=== PATIENT | male | born 1940 | race Caucasian/White ===

== ENCOUNTER 2017-01-27 04:00 | Emergency (ER) | payer MEDICARE ==
[~2017-01-27] VITALS: Ht 170.2 cm; Wt 100.1 kg
[~2017-01-27 04:00] MED LIST: ATOR20TA42 PO; AZAT50 PO; DIOV160T60 PO; FLAG500T PO; PRED5 PO; TAB-TAB PO; TACR1 PO; ZOVI200C24 PO; [UNRECOGNIZED DRUG - CODE] PO; [UNRECOGNIZED DRUG - OTHER] PO
[2017-01-27 04:08] VITALS: BP 129/69; PULSE 93; RESP 16; TEMP 98.2; O2SAT 98
[2017-01-27] MEDS ORDERED: ACYC200C66 PO (04:42)
[2017-01-27] MEDS ORDERED: BACT800T5 PO (04:44)
[2017-01-27] MEDS ORDERED: DOXY100C PO (04:44)
[2017-01-27] MEDS ORDERED: TETANUS/DIPHTHERIA TOXOID ADULT 0.5 ML VIAL IM ONE (04:45)
--- NOTE | 2017-01-27 04:45 | PD ---
HPI Chief Complaint: Injury Time Seen by Provider: 04:37 Travel History International Travel<30 days: No Contact w/Intl Traveler<30days: No Traveled to known affect area: No History of Present Illness HPI The patient is a 76-year-old male that hit his left anterior lower leg on the 12th of this month, 9 days ago. It formed a bruise that did not appear to be healing as rapidly as expected. He comes in today to have it checked. His last tetanus shot was likely over 10 years ago. 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.) Musculoskeletal: Yes (ARTHRITIS) Neurologic: No Psychiatric: No Reproductive: No Respiratory: No Immunizations Current: Yes Migraines: No Myocardial Infarction: Yes Radiation Therapy: No Renal Failure: No Seizures: No Sickle Cell Disease: No Sleep Apnea: No Thyroid Disease: No PNEUMOCCOCAL Vaccine (Year): 1 Past Surgical History Abdominal Surgery: Yes (HERNIA SX) AICD: No Arteriovenous Shunt: No Body Medical Devices: PACEMAKER, HEART TRANSPLANT Cardiac Surgery: Yes (HEART TRANSPLANT 1994) Cholecystectomy: No 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) Endocrine Surgery: No Eye Surgery: No Genitourinary Surgery: No Gynecologic Surgery: No Insulin Pump: No Joint Replacement: Yes (RIGHT HIP) Oral Surgery: No Pacemaker: Yes Thoracic Surgery: Yes (PACEMAKER 1994 AND 2008) Other Surgery: Yes (PACE MAKER PLACEMENT 1994) Social History Alcohol Use: No Tobacco Use: No Substance Use: No Allergies-Medications (Allergen,Severity, Reaction): Coded Allergies: gabapentin (Unverified Allergy, Severe, RASH, 12/21/16) Reported Meds & Prescriptions Reported Meds & Active Scripts Active Flagyl (Metronidazole) 500 Mg Tab 500 Mg PO Q8H Dificid 200 Mg Tab (Fidaxomicin) 200 Mg Tab 200 Mg PO BID Reported Diovan 160 mg (Valsartan) 160 Mg Tab 160 Mg PO DAILY Prograf 1 Mg Cap (Tacrolimus) 1 Mg Cap 1 Mg PO BID [Virtrite] 1 Tab PO DAILY Deltasone 5 mg Tab (Prednisone) 5 Mg Tab 5 Mg PO DAILY Azathioprine 50 Mg Tab 50 Mg PO DAILY Multivitamin (Multivitamins) 1 Tab Tab 1 Tab PO DAILY Lipitor (Atorvastatin Calcium) 20 Mg Tab 20 Mg PO HS Zovirax (Acyclovir) 200 Mg Cap 200 Mg PO BID Review of Systems Except as stated in HPI: all other systems reviewed are Neg Physical Exam Narrative GENERAL: Well-nourished, well-developed patient in slight apparent distress with his left lower leg discomfort. His vital signs are normal.. SKIN: Focused skin assessment warm/dry. HEAD: Normocephalic. EYES: No scleral icterus. No injection or drainage. NECK: Supple, trachea midline. No JVD or lymphadenopathy. CARDIOVASCULAR: Regular rate and rhythm without murmurs, gallops, or rubs. RESPIRATORY: Breath sounds equal bilaterally. No accessory muscle use. GASTROINTESTINAL: Abdomen soft, non-tender, nondistended. MUSCULOSKELETAL: No cyanosis, or edema. The anterior portion of the left lower leg shows an apparent hematoma with slight redness in the area. There is no definite evidence of cellulitis but the potential for infection is significant as there appears to be a fair amount of hematoma below the skin. BACK: Nontender without obvious deformity. No CVA tenderness. Data Data Last Documented VS Vital Signs Date Time Temp Pulse Resp B/P (MAP) Pulse Ox O2 Delivery O2 Flow Rate FiO2 01/27/17 04:08 98.2 93 16 129/69 (89) 98 MDM Medical Decision Making Medical Screen Exam Complete: Yes Emergency Medical Condition: Yes Medical Record Reviewed: Yes Differential Diagnosis Cellulitis left lower leg, hematoma left lower leg, abscess left lower leg, fracture left lower leg-unlikely Narrative Course The patient may have cellulitis on the left lower leg, he appears to have some degree of hematoma on the left lower leg. The blood beneath the skin has the potential for getting infected. He will be given Septra DS and doxycycline and follow up with his primary care physician. He will also get a tetanus shot. Additional Instructions: Follow-up with Dr. Calderón as soon as possible. If this gets infected the infection could be significant. Both antibiotics are one tablet twice daily for 10 days and they're intended to prevent an infection. Med/Other Pt SpecificInfo: Prescription(s) given Scripts Sulfamethoxazole-Trimethoprim (Bactrim DS) 800-160 Mg Tab 1 TAB PO BID for Infection, #20 TAB 0 Refills Prov: Akbar Badillo MD 01/27/17 Doxycycline Hyclate (Doxycycline Hyclate) 100 Mg Cap 100 MG PO BID for Infection, #20 CAP 0 Refills Prov: Akbar Badillo MD 01/27/17 Disposition: 01 DISCHARGE HOME Condition: Stable Akbar Badillo MD Jan 27, 2017 04:45
[2017-01-27] MEDS ORDERED: TACR1CAP PO (04:57)
[2017-01-27] MEDS ORDERED: AZAT50 PO (04:57)
[2017-01-27] MEDS ORDERED: FURO40TA PO (04:57)
[2017-01-27] MEDS ORDERED: AMLO10TA2 PO (04:57)
[2017-01-27] MEDS ORDERED: ATOR20TA15 PO (04:57)
[2017-01-27] MEDS ORDERED: PRED5TAB PO (04:57)
[2017-01-27] MEDS ORDERED: SULFAMETHOXAZOLE-TRIMETHOPRIM DS 800-160 MG TAB PO ONE (05:00)
[2017-01-27] MEDS ORDERED: DOXYCYCLINE HYCLATE 100 MG CAP PO ONE (05:00)
== END 2017-01-27 05:21 | disposition home or self-care (01) ==
LOC: PHED 04:00
DX: S80.12XA Contusion of left lower leg, initial encounter (principal); X58.XXXA Exposure to other specified factors, initial encounter; E78.00 Pure hypercholesterolemia, unspecified; I25.2 Old myocardial infarction; Z95.0 Presence of cardiac pacemaker; Z94.1 Heart transplant status; Z85.828 Personal history of other malignant neoplasm of skin
CPT/HCPCS: 90471; 90714

== ENCOUNTER 2017-05-27 00:43 | Emergency (ER) | payer MEDICARE ==
[~2017-05-27] VITALS: Ht 170.2 cm; Wt 103.9 kg
[~2017-05-27 00:43] MED LIST changes: +ACYC200C66 PO; +AMLO10TA2 PO; +ATOR20TA15 PO; -ATOR20TA42 PO; +BACT800T5 PO; -DIOV160T60 PO; +DOXY100C PO; -FLAG500T PO; +FURO40TA PO; -PRED5 PO; +PRED5TAB PO; -TAB-TAB PO; -TACR1 PO; +TACR1CAP PO; -ZOVI200C24 PO; -[UNRECOGNIZED DRUG - CODE] PO; -[UNRECOGNIZED DRUG - OTHER] PO
[2017-05-27 00:59] VITALS: BP 151/72; PULSE 105; RESP 20; TEMP 98.3; O2SAT 96
[2017-05-27] MEDS ORDERED: GUAISYP4 PO (01:52)
--- NOTE | 2017-05-27 01:59 | PD ---
HPI Chief Complaint: Cold / Flu Symptoms Time Seen by Provider: 01:46 Travel History International Travel<30 days: No Contact w/Intl Traveler<30days: No Traveled to known affect area: No History of Present Illness HPI The patient is a 76-year-old male with a dry cough for 1 day. He denies any fever, dysuria, frequency, urgency, nausea, vomiting, diarrhea, chest pain, sore throat or ear pain. He specifically denies any shortness of breath. He does not smoke. He states he had a flu shot last year. 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.) Musculoskeletal: Yes (ARTHRITIS) Neurologic: No Psychiatric: No Reproductive: No Respiratory: No Immunizations Current: Yes Migraines: No Myocardial Infarction: Yes Radiation Therapy: No Renal Failure: No Seizures: No Sickle Cell Disease: No Sleep Apnea: No Thyroid Disease: No Influenza Vaccination: Yes PNEUMOCCOCAL Vaccine (Year): 1 Past Surgical History Abdominal Surgery: Yes (HERNIA SX) AICD: No Arteriovenous Shunt: No Body Medical Devices: PACEMAKER, HEART TRANSPLANT Cardiac Surgery: Yes (HEART TRANSPLANT 1994) Cholecystectomy: No 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) Endocrine Surgery: No Eye Surgery: No Genitourinary Surgery: No Gynecologic Surgery: No Insulin Pump: No Joint Replacement: Yes (RIGHT HIP) Oral Surgery: No Pacemaker: Yes Thoracic Surgery: Yes (PACEMAKER 1994 AND 2008) Other Surgery: Yes (PACE MAKER PLACEMENT 1994) Social History Alcohol Use: No Tobacco Use: No Substance Use: No Allergies-Medications (Allergen,Severity, Reaction): Coded Allergies: gabapentin (Unverified Allergy, Severe, RASH, 05/27/17) Reported Meds & Prescriptions Reported Meds & Active Scripts Active Guaifenesin AC Liq (Guaifenesin-Codeine Liq) 100-10 Mg/5 Ml Syrp 10 Ml PO Q4H PRN Reported Amlodipine (Amlodipine Besylate) 10 Mg Tab 10 Mg PO DAILY Furosemide 40 Mg Tab 40 Mg PO BID Prednisone 5 Mg Tab 5 Mg PO DAILY Azathioprine 50 Mg Tab 50 Mg PO DAILY Hazardous agent use appropriate precautions for handling and disposal. Tacrolimus 1 Mg Cap 1 Mg PO Q12H Atorvastatin (Atorvastatin Calcium) 20 Mg Tab 20 Mg PO HS Acyclovir 200 Mg Cap 200 Mg PO BID Review of Systems Except as stated in HPI: all other systems reviewed are Neg Physical Exam Narrative GENERAL: Well-nourished, well-developed patient in no respiratory distress. His vital signs show blood pressure 151/72 and heart rate of 105 but are otherwise normal. SKIN: Focused skin assessment warm/dry. HEAD: Normocephalic. EYES: No scleral icterus. No injection or drainage. NECK: Supple, trachea midline. No JVD or lymphadenopathy. CARDIOVASCULAR: Regular rate and rhythm without murmurs, gallops, or rubs. RESPIRATORY: Breath sounds equal bilaterally. No accessory muscle use. Lungs clear to auscultation bilaterally. GASTROINTESTINAL: Abdomen soft, non-tender, nondistended. MUSCULOSKELETAL: No cyanosis, or edema. BACK: Nontender without obvious deformity. No CVA tenderness. Data Data Last Documented VS Vital Signs Date Time Temp Pulse Resp B/P (MAP) Pulse Ox O2 Delivery O2 Flow Rate FiO2 05/27/17 01:20 20 05/27/17 00:59 98.3 105 151/72 (98) 96 MDM Medical Decision Making Medical Screen Exam Complete: Yes Emergency Medical Condition: Yes Medical Record Reviewed: Yes Differential Diagnosis Viral upper respiratory infection, pneumonia, bronchitis, ear infection, pharyngitis, intestinal infection, flu syndrome Narrative Course The patient has a viral upper respiratory infection. The lungs are clear. Plan: The patient be given guaifenesin with codeine cough syrup. He should follow-up with his primary care physician next week. He is told not to drink alcohol or drive on this medication. Diagnosis Primary Impression: Viral upper respiratory infection Additional Instructions: Rest, drink plenty of liquids and follow-up with your primary care physician next week. Do not drink alcohol or drive on the codeine containing cough syrup. The cough syrup as 2 teaspoons every 4-6 hours as needed for cough. Med/Other Pt SpecificInfo: Prescription(s) given Scripts Guaifenesin-Codeine Liq (Guaifenesin AC Liq) 100-10 Mg/5 Ml Syrp 10 ML PO Q4H Y for COUGH, #1 BOTTLE 0 Refills Prov: Akbar Badillo MD 05/27/17 Disposition: 01 DISCHARGE HOME Condition: Stable Akbar Badillo MD May 27, 2017 01:59
[2017-05-27 02:11] VITALS: BP 148/74
== END 2017-05-27 02:13 | disposition home or self-care (01) ==
LOC: PHED 00:43
DX: J06.9 Acute upper respiratory infection, unspecified (principal); B34.9 Viral infection, unspecified; I10 Essential (primary) hypertension
CPT/HCPCS: 99283

== ENCOUNTER 2017-06-26 02:06 | Emergency (ER) | payer MEDICARE ==
[~2017-06-26] VITALS: Ht 170.2 cm; Wt 101.0 kg
[~2017-06-26 02:06] MED LIST changes: -BACT800T5 PO; -DOXY100C PO; +GUAISYP4 PO
[2017-06-26 02:12] VITALS: BP 138/77; PULSE 98; RESP 18; TEMP 98; O2SAT 97
[2017-06-26] MEDS ORDERED: KETOROLAC TROMETHAMINE 60 MG/2 ML (IM) VIAL IM ONE (03:00)
[2017-06-26] MEDS ORDERED: DEXAMETHASONE SOD PHOS 20 MG/5 ML VIAL IM ONE (03:00)
[2017-06-26] MEDS ORDERED: PRED50 PO (03:06)
[2017-06-26] MEDS ORDERED: PERC5TAB12 PO (03:06)
--- NOTE | 2017-06-26 03:12 | PD ---
HPI Chief Complaint: Back/ Neck Pain or Injury Time Seen by Provider: 02:49 Travel History International Travel<30 days: No Contact w/Intl Traveler<30days: No Traveled to known affect area: No History of Present Illness HPI The patient is a 76-year-old male that complains of pain on the left medial scapular area for 3 days. The pain is vague and he cannot located exactly. It hurts when he abducts his left shoulder beyond 90. He states it hurts when he sleeps directly on it and cannot sleep. The patient is driving tonight. 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.) Musculoskeletal: Yes (ARTHRITIS) Neurologic: No Psychiatric: No Reproductive: No Respiratory: No Immunizations Current: Yes Migraines: No Myocardial Infarction: Yes Radiation Therapy: No Renal Failure: No Seizures: No Sickle Cell Disease: No Sleep Apnea: No Thyroid Disease: No Tetanus Vaccination: < 5 Years Influenza Vaccination: Yes PNEUMOCCOCAL Vaccine (Year): 1 Past Surgical History Abdominal Surgery: Yes (HERNIA SX) AICD: No Arteriovenous Shunt: No Body Medical Devices: PACEMAKER, HEART TRANSPLANT Cardiac Surgery: Yes (HEART TRANSPLANT 1994) Cholecystectomy: No 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) Endocrine Surgery: No Eye Surgery: No Genitourinary Surgery: No Gynecologic Surgery: No Insulin Pump: No Joint Replacement: Yes (RIGHT HIP) Neurologic Surgery: No Oral Surgery: No Pacemaker: Yes Thoracic Surgery: Yes (PACEMAKER 1994 AND 2008) Other Surgery: Yes (PACE MAKER PLACEMENT 1994) Social History Alcohol Use: No Tobacco Use: No Substance Use: No Allergies-Medications (Allergen,Severity, Reaction): Coded Allergies: gabapentin (Verified Allergy, Severe, RASH, 06/26/17) Reported Meds & Prescriptions Reported Meds & Active Scripts Active Percocet (Oxycodone-Acetaminophen) 5-325 mg Tab 1-2 Tab PO Q6H PRN Prednisone 50 Mg Tab 50 Mg PO BID Guaifenesin AC Liq (Guaifenesin-Codeine Liq) 100-10 Mg/5 Ml Syrp 10 Ml PO Q4H PRN Reported Amlodipine (Amlodipine Besylate) 10 Mg Tab 10 Mg PO DAILY Furosemide 40 Mg Tab 40 Mg PO BID Prednisone 5 Mg Tab 5 Mg PO DAILY Azathioprine 50 Mg Tab 50 Mg PO DAILY Hazardous agent use appropriate precautions for handling and disposal. Tacrolimus 1 Mg Cap 1 Mg PO Q12H Atorvastatin (Atorvastatin Calcium) 20 Mg Tab 20 Mg PO HS Acyclovir 200 Mg Cap 200 Mg PO BID Review of Systems Except as stated in HPI: all other systems reviewed are Neg Physical Exam Narrative GENERAL: Well-nourished, well-developed patient in moderate apparent distress with his left medial scapular discomfort. His vital signs are normal except for pulse rate of 98. SKIN: Focused skin assessment warm/dry. HEAD: Normocephalic. EYES: No scleral icterus. No injection or drainage. NECK: Supple, trachea midline. No JVD or lymphadenopathy. CARDIOVASCULAR: Regular rate and rhythm without murmurs, gallops, or rubs. RESPIRATORY: Breath sounds equal bilaterally. No accessory muscle use. GASTROINTESTINAL: Abdomen soft, non-tender, nondistended. MUSCULOSKELETAL: No cyanosis, or edema. I can reproduce the patient's pain by pressing medially on the left scapula. I cannot find any exact location of the pain in order to inject locally. I cannot find a trigger point. The patient can abduct his left shoulder to over 100 with pain. The pain begins at about 90. BACK: Nontender without obvious deformity. No CVA tenderness. Data Data Last Documented VS Vital Signs Date Time Temp Pulse Resp B/P (MAP) Pulse Ox O2 Delivery O2 Flow Rate FiO2 06/26/17 02:12 98.0 98 18 138/77 (97) 97 Orders Orders Dexamethasone Inj (Decadron Inj) (06/26/17 03:00) Ketorolac Inj (Toradol Inj) (06/26/17 03:00) MDM Medical Decision Making Medical Screen Exam Complete: Yes Emergency Medical Condition: Yes Medical Record Reviewed: Yes Differential Diagnosis Subscapular bursitis, muscle strain, muscle inflammation Narrative Course The patient appears to have subscapular bursitis. He will be given a tapered course of prednisone. He will also get a prescription for Percocet 5/325 mg. He will need to increase liquid intake while taking the Percocet to avoid constipation. Diagnosis Primary Impression: Myofascial pain on left side Additional Impression: Left subscapular pain Additional Instructions: As we discussed, do not drink alcohol or drive on the Percocet 5. The prednisone is taken one tablet twice daily for 4 days followed by one tablet once daily for 4 days. Follow-up next week with Dr. Calderón. Avoid constipation with the Percocet you will need to increase her liquid intake. Med/Other Pt SpecificInfo: Prescription(s) given Scripts Oxycodone-Acetaminophen (Percocet) 5-325 mg Tab 1-2 TAB PO Q6H Y for PAIN, #30 TAB 0 Refills Prov: Akbar Badillo MD 06/26/17 Prednisone (Prednisone) 50 Mg Tab 50 MG PO BID for X 4 days than daily X 4 days, #12 TAB 0 Refills Prov: Akbar Badillo MD 06/26/17 Disposition: 01 DISCHARGE HOME Condition: Stable Akbar Badillo MD Jun 26, 2017 03:12
[2017-06-26 03:41] VITALS: BP 136/75
== END 2017-06-26 03:50 | disposition home or self-care (01) ==
LOC: PHED 02:06
DX: M75.52 Bursitis of left shoulder (principal); E78.00 Pure hypercholesterolemia, unspecified; I10 Essential (primary) hypertension; M19.90 Unspecified osteoarthritis, unspecified site; I25.2 Old myocardial infarction; Z79.899 Other long term (current) drug therapy; Z88.8 Allergy status to other drugs, medicaments and biological substances; Z94.1 Heart transplant status
CPT/HCPCS: 96372; 99283; J1100; J1885

== ENCOUNTER 2018-02-24 09:54 | Observation (INO) ==
[2018-02-24 11:18] LABS: Activated Partial Thrombo Time 23.6 sec (24.3-30.1); Prothrombin Time 10.4 sec (9.8-11.6)
--- NOTE | 2018-02-24 11:18 | ED ---
HPI General Chief complaint: GI Bleed Stated complaint: GI Complaint/Doctor Sent Time Seen by Provider: 02/24/18 10:58 Source: patient and family Mode of arrival: ambulatory Limitations: no limitations History of Present Illness HPI Narrative: 77y male with a history of a heart transplant presents to the ED for evaluation of rectal bleeding that started 3 weeks ago. His family assists with the history. He was advised to come in by his accounts receivable collector, Dr. Cuellar and advised to consult Dr. John. Patient states there has been pricila blood in the toilet with bowel movements. Pt denies fevers, chills, cheat pain , abdominal pain, rectal pain. He denies nausea, vomiting. He says he has a history of constipation but this has been resolved with stool softeners and fiber. MD complaint: Reports gross hematochezia Onset (ago): week(s) (3) Relieving factors: none Exacerbating factors: bowel movement Context: Reports hemorrhoids Associated symptoms: Reports shortness of breath (x1 year) Treatments Prior to Arrival: Reports none Related Data Home Medications Medication Instructions Recorded Confirmed acyclovir 200 mg PO BID 02/24/18 02/24/18 amlodipine 10 mg PO BID 02/24/18 02/24/18 atorvastatin 20 mg PO DAILY 02/24/18 02/24/18 azathioprine 50 mg PO DAILY 02/24/18 02/24/18 hydralazine 50 mg PO TID 02/24/18 02/24/18 polysaccharide iron complex 150 mg PO DAILY 02/24/18 02/24/18 [Poly-Iron] prednisone 5 mg PO DAILY 02/24/18 02/24/18 tacrolimus 1 mg PO Q12H 02/24/18 02/24/18 torsemide 20 mg PO DAILY 02/24/18 02/24/18 Allergies Allergy/AdvReac Type Severity Reaction Status Date / Time gabapentin Allergy Severe RASH Verified 02/24/18 10:34 Review of Systems ROS: all other systems reviewed are negative [facility] Medical History Medical History HBP (high blood pressure) (Acute) High cholesterol (Acute) Surgical History Surgical History Hx of heart transplant (Acute) Social History Social History Substance History: No History of Abuse Second Hand Smoke Exposure: No Smoking Status: Never smoker How Often Do You Have a Drink Containing Alcohol: Never Recent Travel in [facility] within the Last 8 Weeks: No Recent Out of Country Travel within the Last 8 Weeks: No Immunization History Tetanus Immunization: >5 Years Exam Narrative Exam Narrative: GENERAL: WD, WN in NAD SKIN: Warm and dry. HEAD: Atraumatic. Normocephalic. EYES: Pupils equal and round. No scleral icterus. No injection or drainage. ENT: No nasal bleeding or discharge. Mucous membranes pink and moist. NECK: Trachea midline. No JVD. CARDIOVASCULAR: Regular rate and rhythm. RESPIRATORY: No accessory muscle use. Clear to auscultation. Breath sounds equal bilaterally. GASTROINTESTINAL: Abdomen soft, non-tender, nondistended. Hepatic and splenic margins not palpable. MUSCULOSKELETAL: Extremities without clubbing, cyanosis, or edema. No obvious deformities. Rectal exam performed with nurse: Good rectal tone, dark red stool, positive Hemoccult. No obvious hemorrhoids. NEUROLOGICAL: Awake and alert. No obvious cranial nerve deficits. Motor grossly within normal limits. Five out of 5 muscle strength in the arms and legs. Normal speech. PSYCHIATRIC: Appropriate mood and affect; insight and judgment normal. Course Initial Documented Vital Signs Temperature 98.1 F 02/24/18 10:00 Pulse Rate 106 H 02/24/18 10:00 Respiratory Rate 28 H 02/24/18 10:00 Blood Pressure 164/72 H 02/24/18 10:00 Pulse Oximetry 99 02/24/18 10:00 Last Documented Vital Signs Temperature 98.0 F 02/24/18 16:00 Pulse Rate 93 H 02/24/18 16:00 Respiratory Rate 16 02/24/18 16:00 Blood Pressure 161/74 H 02/24/18 16:00 Pulse Oximetry 97 02/24/18 16:00 Medical Decision Making [facility] Narrative Medical decision making narrative: 77-year-old male presents to the emergency department for evaluation of rectal bleeding that is been persistent for several weeks. His vital signs are stable Labs are notable for hemoglobin/hematocrit 9.9/28.2. No leukocytosis. Platelets 238. Of note, BUN/creatinine elevated from 2016 labs. BUN/ creatinine 48/2.46. Rectal exam demonstrates dark red stool, heme positive. I spoke to Dr. John. He states that there was concern for excessive rectal bleeding but has been persistent for several weeks. Patient actually had a sigmoidoscopy couple of weeks ago which demonstrated a significant amount of blood. Given his history of heart transplant, patient is a high risk for severe injury or . Patient appears to have acute kidney injury, a change from 2016. Patient does follow nephrology however, I do not have his baseline labs at this time. BUN/ creatinine 48/2.46. Will admit patient for possible colonoscopy tomorrow. Recommend consult Dr. John. Pt will be admitted to Dr. Sawant. Medical Screen Exam Complete: Yes Emergency Medical Condition: Yes Differential Diagnosis Differential Diagnosis: Rectal bleeding, hemorrhoids, gastrointestinal bleed, colitis, diverticulitis Lab Data Result diagrams: 02/24/18 10:47 02/24/18 10:47 Lab Results 02/24/18 02/24/18 02/24/18 Range/Units 10:47 10:47 10:47 WBC 10.4 (4.0-11.0) th/mm3 RBC 2.86 L (4.50-5.90) mil/mm3 Hgb 9.9 L (13.0-17.0) gm/dL Hct 28.2 L (39.0-51.0) % MCV 98.6 (80.0-100.0) fL MCH 34.5 H (27.0-34.0) pg MCHC 35.0 (32.0-36.0) % RDW 15.8 (11.6-17.2) % Plt Count 238 (150-450) th/mm3 MPV 7.9 (7.0-11.0) fL Prelim Diff (Auto) Slide review pending Neut % (Auto) 85.1 H (16.0-70.0) % Lymph % (Auto) 7.0 L (9.0-44.0) % [place] % (Auto) 6.0 (0.0-8.0) % Eos % (Auto) 0.8 (0.0-4.0) % Baso % (Auto) 1.1 (0.0-2.0) % Neut # (Auto) 8.9 H (1.8-7.7) th/mm3 Lymph # (Auto) 0.7 L (1.0-4.8) th/mm3 [place] # (Auto) 0.6 (0.0-0.9) th/mm3 Eos # (Auto) 0.1 (0.0-0.4) th/mm3 Baso # (Auto) 0.1 (0.0-0.2) th/mm3 WBC Differential . Diff Scan Auto diff confirmed Differential Comment . PT 10.4 (9.8-11.6) sec INR 1.0 Ratio APTT 23.6 L (24.3-30.1) sec Sodium 140 (136-145) meq/L Potassium 4.2 (3.5-5.1) meq/L Chloride 106 (98-107) meq/L Carbon Dioxide 26.4 (21.0-32.0) meq/L Anion Gap 8 (5-15) meq/L BUN 48 H (7-18) mg/dL Creatinine 2.46 H (0.60-1.30) mg/dL Estimated GFR 26 L (>89) mL/min Random Glucose 120 H (74-106) mg/dL Calcium 9.6 (8.5-10.1) mg/dL Total Bilirubin 0.4 (0.2-1.0) mg/dL AST 19 (15-37) U/L ALT 27 (12-78) U/L Alkaline Phosphatase 84 (45-117) U/L Total Protein 7.7 (6.4-8.2) g/dL Albumin 3.8 (3.4-5.0) g/dL Blood Type Antibody Screen 02/24/18 Range/Units 11:30 WBC (4.0-11.0) th/mm3 RBC (4.50-5.90) mil/mm3 Hgb (13.0-17.0) gm/dL Hct (39.0-51.0) % MCV (80.0-100.0) fL MCH (27.0-34.0) pg MCHC (32.0-36.0) % RDW (11.6-17.2) % Plt Count (150-450) th/mm3 MPV (7.0-11.0) fL Prelim Diff (Auto) Neut % (Auto) (16.0-70.0) % Lymph % (Auto) (9.0-44.0) % [place] % (Auto) (0.0-8.0) % Eos % (Auto) (0.0-4.0) % Baso % (Auto) (0.0-2.0) % Neut # (Auto) (1.8-7.7) th/mm3 Lymph # (Auto) (1.0-4.8) th/mm3 [place] # (Auto) (0.0-0.9) th/mm3 Eos # (Auto) (0.0-0.4) th/mm3 Baso # (Auto) (0.0-0.2) th/mm3 WBC Differential Diff Scan Differential Comment PT (9.8-11.6) sec INR Ratio APTT (24.3-30.1) sec Sodium (136-145) meq/L Potassium (3.5-5.1) meq/L Chloride (98-107) meq/L Carbon Dioxide (21.0-32.0) meq/L Anion Gap (5-15) meq/L BUN (7-18) mg/dL Creatinine (0.60-1.30) mg/dL Estimated GFR (>89) mL/min Random Glucose (74-106) mg/dL Calcium (8.5-10.1) mg/dL Total Bilirubin (0.2-1.0) mg/dL AST (15-37) U/L ALT (12-78) U/L Alkaline Phosphatase (45-117) U/L Total Protein (6.4-8.2) g/dL Albumin (3.4-5.0) g/dL Blood Type O Positive Antibody Screen Negative Discharge Plan Discharge Disposition Patient Disposition: 30 Still Patient Discharge Condition Condition: Stable Discharge Details Diagnosis: Hematochezia, CYNDI (acute kidney injury) Physicians Team ED Provider: Omid Traylor ED Midlevel Provider: Inez Pichardo Primary Care Provider: Guanakito Calderón Attending Provider: Virginia Sawant Other Providers: Tyler Sullivan Status ED Status: Left Department Discharge Information Discharge Date/Time: 02/24/18 16:55
[2018-02-24 11:31] LABS: Alanine Aminotransferase 27 U/L (12-78); Albumin 3.8 g/dL (3.4-5.0); Anion Gap 8 meq/L (5-15); Aspartate Aminotransferase 19 U/L (15-37); Baso # (Auto) 0.1 th/mm3 (0.0-0.2); Baso % (Auto) 1.1 % (0.0-2.0); Blood Urea Nitrogen 48 mg/dL (7-18); Calcium 9.6 mg/dL (8.5-10.1); Carbon Dioxide 26.4 meq/L (21.0-32.0); Chloride 106 meq/L (98-107); Eos # (Auto) 0.1 th/mm3 (0.0-0.4); Eos % (Auto) 0.8 % (0.0-4.0); Glomerular Filtration Rate 26 mL/min (>89); Glucose,Random 120 mg/dL (74-106); Hematocrit 28.2 % (39.0-51.0); Hemoglobin 9.9 gm/dL (13.0-17.0); Lymph # (Auto) 0.7 th/mm3 (1.0-4.8); Mean Corpuscular Hemoglobin 34.5 pg (27.0-34.0); Mean Corpuscular Volume 98.6 fL (80.0-100.0); Mean Platelet Volume 7.9 fL (7.0-11.0); Mono # (Auto) 0.6 th/mm3 (0.0-0.9); Neut # (Auto) 8.9 th/mm3 (1.8-7.7); Neut % (Auto) 85.1 % (16.0-70.0); Platelet Count 238 th/mm3 (150-450); Potassium 4.2 meq/L (3.5-5.1); Red Blood Count 2.86 mil/mm3 (4.50-5.90); Red Cell Distribution Width 15.8 % (11.6-17.2); Sodium 140 meq/L (136-145); White Blood Count 10.4 th/mm3 (4.0-11.0)
[2018-02-24 11:34] LABS: Alkaline Phosphatase 84 U/L (45-117); Total Protein 7.7 g/dL (6.4-8.2)
[2018-02-24] MEDS ORDERED: Bisacodyl 10 MG Supp RECTAL PRN (13:10)
[2018-02-24] MEDS ORDERED: Acetaminophen 325 MG Tablet PO PRN (13:10)
[2018-02-24] MEDS ORDERED: Tacrolimus 0.5 MG Capsule PO SCH (13:15)
[2018-02-24] MEDS: Sod Chloride 0.9% Inj 1,000 ML IV.CONT SCH (14:40)
--- NOTE | 2018-02-24 15:30 | MB ---
cc: Tyler Sullivan MD,Bull John,Yakov Calderón,Guanakito Keane MD DATE: 02/24/2018 REASON FOR CONSULTATION: I was asked at the request of Dr. Sawant for evaluation of GI bleed. 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 For the last 3 weeks, he has been having blood per rectum (red and maroon). It occurred with a bowel movement. He saw his primary care doctor who put him on suppositories as well as Benefiber without much relief. Today, the patient was seen by Dr. Cuellar and a sigmoidoscopy was done, which revealed "brick colored" stools. Dr. Cuellar's opinion was that the bleeding is coming from higher up, either in the proximal colon or the upper GI tract. The patient was then told to come to the emergency room to be admitted and we were asked to see him. The patient denies any type of dysphagia, odynophagia, early satiety, nausea, vomiting. No melena. No pricila hematochezia as far as blood pouring out, but the maroon stools usually occur with a bowel movement. There has been no diarrhea or constipation. Had constipation in the past, but was better with fiber. Of note, the patient's last colonoscopy was done in September 2013, which revealed colon polyps, but no diverticula. The polyps were adenomatous and hyperplastic. PAST SURGICAL HISTORY: Includes colonoscopy in 2013. He had a cardiac transplant. PAST MEDICAL HISTORY: Significant for hypertension, ischemic cardiomyopathy, for which he had a transplant. He has dyslipidemia also, he believes. He has renal insufficiency also. ALLERGIES: GABAPENTIN. FAMILY HISTORY: Noncontributory for colon cancer or colon polyps, but there may be cirrhosis in his mother. SOCIAL HISTORY: Does not currently smoke or drink. MEDICATIONS: 1. Tylenol. 2. Zovirax. 3. Milk of magnesia. 4. Norvasc. 5. Lipitor. 6. Imuran 7. Dulcolax. 8. Lactulose. 9. Zofran. 10. Deltasone. 11. Senokot. 12. Prograf. 13. Demadex. REVIEW OF SYSTEMS: CONSTITUTIONAL: No weight loss, fever or chills. CARDIOPULMONARY: No chest pain, palpitation, shortness of breath. GASTROINTESTINAL: Please see above. Otherwise, unremarkable 12-point review of systems. PHYSICAL EXAMINATION: VITAL SIGNS: Blood pressure is 164/72, pulse was 89, temperature 98.1. Respiration rate 28. GENERAL: He is an obese, chronically ill-appearing male, appears in no acute distress at this time. HEENT: Pupils are equal and reactive to light. No obvious scleral icterus. Oropharyngeal cavity shows he has dental caries. No tongue deviation or candidal lesions. Hearing was intact. NECK: Supple without lymphadenopathy. LUNGS: Clear to auscultation and percussion. HEART: Regular rate and rhythm. No murmurs are heard. ABDOMEN: Soft, nondistended, nontender. No organ masses. No ascites or hernias. Bowel sounds are positive in all 4 quadrants. EXTREMITIES: Had no cyanosis, clubbing, or edema. SKIN: Warm without icterus. NEUROLOGIC: He is alert and oriented x3. Cranial nerves 2-12 are grossly intact. I did not assess his gait. RECTAL: I did not repeat the rectal exam, but the ER doctor did and it revealed dark red stools which are Hemoccult positive. No hemorrhoids are noted. LABORATORY DATA: Labs revealed a white blood cell count of 10,400, hemoglobin 9.9, hematocrit 28.2, MCV of 98.6. Platelet count 238,000. Prothrombin time 10.4, INR 1.0, PTT of 23.6. His sodium 140, potassium 4.2, BUN 48, elevated creatinine 2.46, which is elevated, total bilirubin 0.4, SGOT of 19, SGPT of 27, alkaline phosphatase of 84 -- these are all normal. Albumin 3.8, which is normal. Total protein 7.7 and is normal. IMPRESSION: 1. Hematochezia -- patient has maroon type stools somewhat apparent. The impression of the surgeon was that it may be bleeding higher up or possibly in the upper gastrointestinal tract. We talked about arteriovenous malformations, diverticulosis, small bowel lesions, peptic ulcer disease and occult gastrointestinal malignancies. We need to find out the source of bleeding. 2. Anemia. The patient has renal insufficiency. 3. History of cardiac transplant. RECOMMENDATIONS: 1. I talked in detail with the patient about doing upper endoscopy and if we do not find anything, then do a colonoscopy. We talked about doing both in the same day or different days. He preferred separate days if possible. However, he is concerned in regard to the heart and wishes a cardiac evaluation before we proceed. I did inform the ER nurses in this regard. 2. We did talk with indications, risks, complications, benefits and limitations including risks of bleeding, perforation, infection, arrhythmias, small possibility of . He understands he is higher than average risk. We talked about the risk of missed lesions and the patient understands that having a colonoscopy does not rule out colon cancer features as not all cancers start from polyps, some start from flat lesions. 3. Transfuse as needed. 4. Further recommendations depending on how he does Tyler Sullivan MD SPP/es , 02:45 PM , 03:03 PM
--- NOTE | 2018-02-24 18:30 | P.HP ---
History of Present Illness Service: [facility] Primary Care Physician: Guanakito Calderón MD Chief Complaint: rectal bleed History of Present Illness: This is a 77 year male pt. with significant PMHx heart transplant 23 years ago, HTN, HLP, hx of [place], CKD, CHF, aortic stenosis. Patient presented to the emergency room with complaint of rectal bleeding. Patient endorses that approximately 3 weeks ago he started to notice blood (red/maroon) in the toilet independent of stool. No abdominal pain, no nausea, no vomiting, no hematemesis. He went to see his primary care physician who put him on Benefiber and suppositories. Indicates he had no improvement and therefore he was referred to Dr. Hernandez. He went to see Dr. Cuellar today who did a sigmoidoscopy and was referred to the emergency room for further evaluation with consultation to Dr. John. Patient endorses history of occasional constipation, however this is resolved with stool softeners. Had a colonoscopy approximately 3-4 years ago which was negative. Has not noticed any weight loss. Denies any fever, no chills. No chest pain, no lightheadedness, no dizziness. No shortness of breath. Patient is not on any blood thinners. Patient was evaluated in the emergency room, hemoglobin was 9.9, hematocrit was 28.2. Rectal exam completed in the emergency room showed dark red color. No hemorrhoids were noted. He is noted with creatinine 2.46, creatinine in 2016 was 1.5. Patient has history of chronic kidney disease and sees Dr. Kat. He was last seen last week and was told his kidney function was stable. He was put on diuretics recently for pedal edema and weight gain. Patient has been evaluated by Dr. Sullivan and he is planning EGD and if he does not find anything then he will do colonoscopy. Patient is concerned in regards to his history of heart transplant. Indicates that he was scheduled to have left hip repair at the beginning of this year however his coat tailor Dr. Mann at [facility] told him that because of poor heart function and CKD, that he would not advise him to undergo surgery due to high risk. Patient proceeded to cancel that hip repair. At this time, he is very concerned and has verbalized the same to Dr. Sullivan. He does not follow locally with a coat tailor. I have placed a call to [facility] to speak to Dr. Mann. Patient is admitted for further evaluation and treatment. - Diagnosis (1) Hematochezia (2) Anemia (3) Acute on chronic kidney failure (4) HTN (hypertension) (5) Hyperlipidemia Review of Systems All other systems reviewed negative except as stated in HPI PMFSH - History History Provided By: Patient - Medical History Medical History: Medical History (Last Updated 02/24/18 @ 18:21 by BEA Rowe) CKD (chronic kidney disease) HBP (high blood pressure) High cholesterol Hx of cardiomyopathy Hx of myocardial infarction - Surgical History Surgical History: Surgical History (Last Updated 02/24/18 @ 18:20 by BEA Rowe) History of right hip replacement Hx of colonoscopy Hx of heart transplant - Family History Family History: Family History (Last Updated 02/24/18 @ 18:22 by BEA Rowe) Father Lung cancer Mother Liver disease - Tobacco History Second Hand Smoke Exposure: No Smoking Status: Never smoker - Alcohol History How Often Do You Have a Drink Containing Alcohol: Never - Substance Use History Substance History: No History of Abuse - Travel History Recent Travel in the [place] Within the Last 8 Weeks: No Recent Travel Out of the Country Within the Last 8 Weeks: No - Immunization History Tetanus Immunization: >5 Years Medications and Allergies Active Medications: Active Medications Acetaminophen (Tylenol) 650 mg PO Q4H PRN PRN Reason: Temp > 100.4 Acyclovir (Zovirax) 200 mg PO BID KAVITA Al Hydroxide/Mg Hydroxide (Milk Of Magnesia Liq) 30 ml PO Q12H PRN PRN Reason: Mild Constipation Amlodipine Besylate (Norvasc) 10 mg PO DAILY REPLACED BY [facility] Atorvastatin Calcium (Lipitor) 20 mg PO DAILY REPLACED BY [facility] Azathioprine (Imuran) 50 mg PO DAILY KAVITA Bisacodyl (Dulcolax Supp) 10 mg RECTAL DAILY PRN PRN Reason: SEVERE CONSITIPATION Hydralazine HCl (Apresoline) 50 mg PO TID REPLACED BY [facility] Sodium Chloride (Ns Inj) 1,000 mls @ 100 mls/hr IV.CONT .Q10H REPLACED BY [facility] Last Admin: 02/24/18 14:40 Dose: 100 mls/hr Lactulose (Lactulose Liq) 30 ml PO DAILY PRN PRN Reason: SEVERE CONSITIPATION Ondansetron HCl (Zofran Inj) 4 mg IV.PUSH Q6H PRN PRN Reason: NAUSEA OR VOMITING Prednisone (Deltasone) 5 mg PO DAILY KAVITA Sennosides (Senokot) 17.2 mg PO Q12H PRN PRN Reason: Moderate Constipation Tacrolimus (Prograf) 1 mg PO BID@0800,2000 KAVITA Torsemide (Demadex) 20 mg PO DAILY REPLACED BY [facility] Allergies Allergy/AdvReac Type Severity Reaction Status Date / Time gabapentin Allergy Severe RASH Verified 02/24/18 10:34 Home Medications Medication Instructions Recorded Confirmed Type acyclovir 200 mg PO BID 02/24/18 02/24/18 History amlodipine 10 mg PO BID 02/24/18 02/24/18 History atorvastatin 20 mg PO DAILY 02/24/18 02/24/18 History azathioprine 50 mg PO DAILY 02/24/18 02/24/18 History hydralazine 50 mg PO TID 02/24/18 02/24/18 History polysaccharide iron complex 150 mg PO DAILY 02/24/18 02/24/18 History [Poly-Iron] prednisone 5 mg PO DAILY 02/24/18 02/24/18 History tacrolimus 1 mg PO Q12H 02/24/18 02/24/18 History torsemide 20 mg PO DAILY 02/24/18 02/24/18 History Exam Vital signs: Vital Signs 02/24/18 10:00 02/24/18 10:33 02/24/18 16:00 Temperature 98.1 F 98.0 F Pulse Rate 106 H 89 93 H Respiratory Rate 28 H 16 Blood Pressure 164/72 H 161/74 H Pulse Oximetry 99 98 97 Intake & Output 02/23/18 02/24/18 02/24/18 18:59 06:59 18:59 Weight 99.337 kg Narrative: GENERAL: Well-nourished, well-developed patient in no apparent distress. SKIN: Warm and dry. HEAD: Atraumatic. Normocephalic. EYES: Pupils equal and round. No scleral icterus. No injection or drainage. ENT: No nasal bleeding or discharge. Mucous membranes pink and moist. NECK: Trachea midline. No JVD. CARDIOVASCULAR: S1-S2, murmur noted, 2/6. No rubs, no gallops. RESPIRATORY: No accessory muscle use. Clear to auscultation. Breath sounds equal bilaterally. GASTROINTESTINAL: Abdomen soft, non-tender, nondistended. Hepatic and splenic margins not palpable. MUSCULOSKELETAL: Extremities without clubbing, cyanosis, trace pretibial edema. No obvious deformities. Pedal pulses 2+ bilateral NEUROLOGICAL: Awake and alert. No obvious cranial nerve deficits. Motor grossly within normal limits. Five out of 5 muscle strength in the arms and legs. Normal speech. PSYCHIATRIC: Appropriate mood and affect; insight and judgment normal. Results - Labs CBC & Chem 7: 02/24/18 10:47 02/24/18 10:47 Labs: Laboratory Results - last 24 hr 02/24/18 02/24/18 02/24/18 10:47 10:47 10:47 WBC 10.4 RBC 2.86 L Hgb 9.9 L Hct 28.2 L MCV 98.6 MCH 34.5 H MCHC 35.0 RDW 15.8 Plt Count 238 MPV 7.9 Prelim Diff (Auto) Slide review pending Neut % (Auto) 85.1 H Lymph % (Auto) 7.0 L [place] % (Auto) 6.0 Eos % (Auto) 0.8 Baso % (Auto) 1.1 Neut # (Auto) 8.9 H Lymph # (Auto) 0.7 L [place] # (Auto) 0.6 Eos # (Auto) 0.1 Baso # (Auto) 0.1 WBC Differential . Diff Scan Auto diff confirmed Differential Comment . PT 10.4 INR 1.0 APTT 23.6 L Sodium 140 Potassium 4.2 Chloride 106 Carbon Dioxide 26.4 Anion Gap 8 BUN 48 H Creatinine 2.46 H Estimated GFR 26 L Random Glucose 120 H Calcium 9.6 Total Bilirubin 0.4 AST 19 ALT 27 Alkaline Phosphatase 84 Total Protein 7.7 Albumin 3.8 Blood Type Antibody Screen 02/24/18 11:30 WBC RBC Hgb Hct MCV MCH MCHC RDW Plt Count MPV Prelim Diff (Auto) Neut % (Auto) Lymph % (Auto) [place] % (Auto) Eos % (Auto) Baso % (Auto) Neut # (Auto) Lymph # (Auto) [place] # (Auto) Eos # (Auto) Baso # (Auto) WBC Differential Diff Scan Differential Comment PT INR APTT Sodium Potassium Chloride Carbon Dioxide Anion Gap BUN Creatinine Estimated GFR Random Glucose Calcium Total Bilirubin AST ALT Alkaline Phosphatase Total Protein Albumin Blood Type O Positive Antibody Screen Negative Caprini VTE Risk Assessment Caprini VTE Risk Assessment: Moderate/High Risk (score >= 2) VTE Pharmacological Exception Reason: High risk for bleeding Caprini Risk Assessment Model: Point Value = 1 Point Value = 2 Point Value = 3 Point Value = 5 Age 41-60 Minor surgery BMI > 25 kg/m2 Swollen legs Varicose veins or History of unexplained or recurrent spontaneous Oral contraceptives or hormone replacement Sepsis (< 1 month) Serious lung disease, including pneumonia (< 1 month) Abnormal pulmonary function Acute myocardial infarction Congestive heart failure (< 1 month) History of inflammatory bowel disease Medical patient at bed rest Age 61-74 Arthroscopic surgery Major open surgery (> 45 min) Laparoscopic surgery (> 45 min) Malignancy Confined to bed (> 72 hours) Immobilizing plaster cast Central venous access Age >= 75 History of VTE Family history of VTE Factor V Leiden Prothrombin 31795H Lupus anticoagulant Anticardiolipin antibodies Elevated serum homocysteine Heparin-induced thrombocytopenia Other congenital or acquired thrombophilia Stroke (< 1 month) Elective arthroplasty Hip, pelvis, or leg fracture Acute spinal cord injury (< 1 month) Prophylaxis Regimen: Total Risk Factor Score Risk Level Prophylaxis Regimen 0-1 Low Early ambulation 2 Moderate Order ONE of the following: *Sequential Compression Device (SCD) *Heparin 5000 units SQ BID 3-4 Higher Order ONE of the following medications: *Heparin 5000 units SQ TID *Enoxaparin/Lovenox 40 mg SQ daily (WT < 150 kg, CrCl > 30 mL/min) *Enoxaparin/Lovenox 30 mg SQ daily (WT < 150 kg, CrCl > 10-29 mL/min) *Enoxaparin/Lovenox 30 mg SQ BID (WT < 150 kg, CrCl > 30 mL/min) AND/OR *Sequential Compression Device (SCD) 5 or more Highest Order ONE of the following medications: *Heparin 5000 units SQ TID (Preferred with Epidurals) *Enoxaparin/Lovenox 40 mg SQ daily (WT < 150 kg, CrCl > 30 mL/min) *Enoxaparin/Lovenox 30 mg SQ daily (WT < 150 kg, CrCl > 10-29 mL/min) *Enoxaparin/Lovenox 30 mg SQ BID (WT < 150 kg, CrCl > 30 mL/min) AND *Sequential Compression Device (SCD) Assessment and Plan - Assessment (1) Hematochezia Code(s): K92.1 - Melena Status: Acute (2) Anemia Code(s): D64.9 - Anemia, unspecified Status: Acute (3) Acute on chronic kidney failure Code(s): N17.9 - Acute kidney failure, unspecified; N18.9 - Chronic kidney disease, unspecified Status: Acute (4) HTN (hypertension) Code(s): I10 - Essential (primary) hypertension Status: Chronic (5) Hyperlipidemia Code(s): E78.5 - Hyperlipidemia, unspecified Status: Chronic - Plan 77-year-old male with significant past medical history of heart transplant, hypertension, hyperlipidemia, CHF, chronic kidney disease, hx of aortic stenosis presented to the emergency room with rectal bleeding for the last 3 weeks. Describes stools as maroon colored/red. No other symptoms. No dizziness, no lightheadedness, no chest pain. Hemoglobin 9.9 and hematocrit 28.2. Rectal exam completed in the emergency room showed dark red color. No hemorrhoids were noted. History of colonoscopy 3-4 years ago, indicates that he had a normal findings. Underwent sigmoidoscopy today Dr. Cuellar, findings of "brick colored" stools. Hematochezia Status post flexible sigmoidoscopy at Dr. Cuellar, findings of "brick colored" stools H&H stable History of constipation -Appreciate GI input, possible EGD and colonoscopy Continue with IV fluids Follow CBC in the morning Clear liquid for now, keep n.p.o. after midnight Anemia likely multifactorial, recent hematochezia, also chronic kidney disease We will check iron studies H&H stable Follow CBC -We will check iron profile Acute on chronic kidney disease f/u as OP with Dr. Kat Last creatinine in 2016 1.6, creatinine today 2.46 -Hold Demadex -Continue with cautious hydration Follow BMP in the morning Hx of Aortic stenosis Congestive heart failure, chronic. Pt. on Demadex -cautious hydration -Continuous cardiac telemetry We will resume diuretics when creatinine back to baseline History of heart transplant 23 years ago Follows up with Dr. Johnathan Byrd [place] Continue with antirejection meds including Imuran, prednisone, acyclovir, and tacrolimus Hypertension, stable Continue Norvasc Hyperlipidemia Continue lipitor Avoid anticoagulation, SCDs for DVT prophylaxis Add Protonix for GI prophylaxis Plan of care discussed with patient, RN. Further management of the patient will be dependent on hospital course Was able to speak to her facilities coordinator at [facility]. Patient is okay to proceed with EGD and colonoscopy, he does have moderate risk due to his comorbidities but otherwise is stable to proceed with upper endoscopy and colonoscopy. Has history of aortic stenosis which has been well managed up to now. Endorses that surgery that was canceled in July was an elective surgery. For further questions, Dr. Mann can be reached at [phone] Code Status: Full code Discussed Condition With: RN, pt. Discharge Planning: Poss dc 2 days (2) Anemia Qualifiers: Anemia type: other cause Other causes of anemia: other cause, not classified Qualified Code(s): D64.89 - Other specified anemias (4) HTN (hypertension) Qualifiers: Hypertension type: essential hypertension Qualified Code(s): I10 - Essential (primary) hypertension (5) Hyperlipidemia Qualifiers: Hyperlipidemia type: unspecified Qualified Code(s): E78.5 - Hyperlipidemia, unspecified
[2018-02-24] MEDS: hydrALAZINE 50 MG Tablet PO SCH (19:26)
[2018-02-24] MEDS: Acyclovir 200 MG Capsule PO SCH (20:52)
[2018-02-25] MEDS: Sod Chloride 0.9% Inj 1,000 ML IV.CONT SCH ×2 (01:43→21:02)
[2018-02-25] MEDS ORDERED: Torsemide 20 MG Tablet PO SCH (09:00)
[2018-02-25] MEDS: amLODIPine 10 MG Tablet PO SCH (09:53)
[2018-02-25] MEDS: azaTHIOprine 50 MG Tablet PO SCH (09:54)
[2018-02-25] MEDS: predniSONE 5 MG Tablet PO SCH (09:54)
[2018-02-25] MEDS: hydrALAZINE 50 MG Tablet PO SCH ×3 (09:54→19:33)
[2018-02-25] MEDS: Acyclovir 200 MG Capsule PO SCH ×2 (09:55→20:56)
[2018-02-25] MEDS: Tacrolimus 0.5 MG Capsule PO SCH (11:32)
--- NOTE | 2018-02-25 11:41 | P.PNIM ---
Subjective Interval history: Patient is not in any acute distress. He is requesting that I speak to his gate operator Dr. Mann. Physical Exam Vital signs: Vital Signs 02/24/18 16:00 02/24/18 19:42 02/24/18 20:00 Temperature 98.0 F 98.0 F Pulse Rate 93 H 101 H 99 H Respiratory Rate 16 20 Blood Pressure 161/74 H 157/72 H Pulse Oximetry 97 97 02/24/18 23:33 02/25/18 00:00 02/25/18 03:30 Temperature 97.4 F L 97.8 F Pulse Rate 92 H 99 H 93 H Respiratory Rate 20 19 Blood Pressure 121/58 L 154/74 H Pulse Oximetry 94 L 94 L 02/25/18 04:00 02/25/18 08:00 Temperature Pulse Rate 96 H 95 H Respiratory Rate 18 Blood Pressure 159/81 H Pulse Oximetry 95 Intake & Output 02/24/18 02/25/18 02/25/18 18:59 06:59 18:59 Intake Total 1000 / 1000 Balance 1000 / 1000 Weight 99.337 kg Intake: IV 1000 / 1000 NS Inj 1,000 ML @ 50 mls/hr IV. 1000 / 1000 CONT .Q20H [facility] Rx#:[id number] Narrative: General patient in no acute distress HEENT extraocular movements are intact, clear oropharyngeal mucosa, no JVD Cardiovascular S1-S2 audible Respiratory clear to auscultation bilaterally Abdomen soft, nontender, nondistended, normal bowel sounds Extremities no edema 2+ distal pulses in bilateral upper and lower extremities Neuro no neurological deficits Results - Labs CBC & Chem 7: 02/24/18 10:47 02/24/18 10:47 Laboratory Results - last 24 hr 02/24/18 02/24/18 02/24/18 10:47 10:47 10:47 WBC 10.4 RBC 2.86 L Hgb 9.9 L Hct 28.2 L MCV 98.6 MCH 34.5 H MCHC 35.0 RDW 15.8 Plt Count 238 MPV 7.9 Prelim Diff (Auto) Slide review pending Neut % (Auto) 85.1 H Lymph % (Auto) 7.0 L [place] % (Auto) 6.0 Eos % (Auto) 0.8 Baso % (Auto) 1.1 Neut # (Auto) 8.9 H Lymph # (Auto) 0.7 L [place] # (Auto) 0.6 Eos # (Auto) 0.1 Baso # (Auto) 0.1 WBC Differential . Diff Scan Auto diff confirmed Differential Comment . PT 10.4 INR 1.0 APTT 23.6 L Sodium 140 Potassium 4.2 Chloride 106 Carbon Dioxide 26.4 Anion Gap 8 BUN 48 H Creatinine 2.46 H Estimated GFR 26 L Random Glucose 120 H Calcium 9.6 Total Bilirubin 0.4 AST 19 ALT 27 Alkaline Phosphatase 84 Total Protein 7.7 Albumin 3.8 Blood Type Antibody Screen 02/24/18 11:30 WBC RBC Hgb Hct MCV MCH MCHC RDW Plt Count MPV Prelim Diff (Auto) Neut % (Auto) Lymph % (Auto) [place] % (Auto) Eos % (Auto) Baso % (Auto) Neut # (Auto) Lymph # (Auto) [place] # (Auto) Eos # (Auto) Baso # (Auto) WBC Differential Diff Scan Differential Comment PT INR APTT Sodium Potassium Chloride Carbon Dioxide Anion Gap BUN Creatinine Estimated GFR Random Glucose Calcium Total Bilirubin AST ALT Alkaline Phosphatase Total Protein Albumin Blood Type O Positive Antibody Screen Negative Assessment and Plan - Assessment (1) Hematochezia Code(s): K92.1 - Melena Status: Acute (2) Anemia Code(s): D64.9 - Anemia, unspecified Status: Acute (3) Acute on chronic kidney failure Code(s): N17.9 - Acute kidney failure, unspecified; N18.9 - Chronic kidney disease, unspecified Status: Acute (4) HTN (hypertension) Code(s): I10 - Essential (primary) hypertension Status: Chronic (5) Hyperlipidemia Code(s): E78.5 - Hyperlipidemia, unspecified Status: Chronic - Plan This patient is a 77-year-old male with a history of heart transplant approximately 23 years ago, hypertension, dyslipidemia, CHF, chronic kidney disease, and aortic stenosis. Patient presented to our emergency department with complaints of rectal bleeding that has been ongoing over the past few weeks. Rectal examination in the emergency department showed dark red stool according to the patient he had a colonoscopy about 3-4 years ago which showed normal findings. He underwent sigmoidoscopy yesterday by Dr. Klein which showed brick colored stools. 1. Anemia possibly secondary to GI bleed and chronic kidney disease. 2. Hematochezia Hemoglobin as of yesterday was 9.9. The patient was evaluated by GI yesterday who recommended upper endoscopy and possibly a colonoscopy. As per the documentation the patient refused to move forward with the procedures until he speaks to his gate operator Dr. Mann. I made an attempt to contact Dr. Mann and left my phone number for them to call me back. For now we will continue supportive care and I will update the GI team after I discussed the case with Dr. Mann. Protonix IV twice daily Patient is currently asymptomatic he denies having any dizziness or significant complaints of fatigue. 3. Acute on chronic kidney disease likely secondary to #1 Patient serum creatinine 2016 was. As of yesterday was 2.46. BMP pending. 4. Hypertension/dyslipidemia Continue current medications. The patient blood pressure medications will be adjusted if needed. 5. History of heart transplant 23 years ago Continue current medications including Imuran, prednisone, acyclovir, tacrolimus. SCDs for DVT prophylaxis (2) Anemia Qualifiers: Anemia type: other cause Other causes of anemia: other cause, not classified Qualified Code(s): D64.89 - Other specified anemias (4) HTN (hypertension) Qualifiers: Hypertension type: essential hypertension Qualified Code(s): I10 - Essential (primary) hypertension (5) Hyperlipidemia Qualifiers: Hyperlipidemia type: unspecified Qualified Code(s): E78.5 - Hyperlipidemia, unspecified
[2018-02-25 12:00] LABS: Baso % (Auto) 0.4 % (0.0-2.0); Eos # (Auto) 0.1 th/mm3 (0.0-0.4); Eos % (Auto) 1.2 % (0.0-4.0); Hematocrit 28.6 % (39.0-51.0); Hemoglobin 9.8 gm/dL (13.0-17.0); Lymph % (Auto) 12.8 % (9.0-44.0); Mean Corpuscular HGB Conc 34.3 % (32.0-36.0); Mean Corpuscular Hemoglobin 34.4 pg (27.0-34.0); Mean Corpuscular Volume 100.1 fL (80.0-100.0); Mean Platelet Volume 7.1 fL (7.0-11.0); Mono # (Auto) 0.7 th/mm3 (0.0-0.9); Mono % (Auto) 8.9 % (0.0-8.0); Neut # (Auto) 5.8 th/mm3 (1.8-7.7); Neut % (Auto) 76.7 % (16.0-70.0); Platelet Count 243 th/mm3 (150-450); Red Blood Count 2.86 mil/mm3 (4.50-5.90); Red Cell Distribution Width 16.4 % (11.6-17.2); White Blood Count 7.5 th/mm3 (4.0-11.0)
[2018-02-25 12:40] LABS: % Iron Saturation 8.8 % (20-50); Calcium 9.2 mg/dL (8.5-10.1); Carbon Dioxide 27.2 meq/L (21.0-32.0); Potassium 4.2 meq/L (3.5-5.1)
--- NOTE | 2018-02-25 13:37 | P.PNGI ---
Subjective Interval history: patient doing well. He has did not have any bleeding last night he states. Has not had a bowel movement today. Hemoglobin stable. Patient wants OK from his sanitor in [place] to get this upper endoscopy and colonoscopy done Physical Exam Vital signs: Vital Signs 02/24/18 16:00 02/24/18 19:42 02/24/18 20:00 Temperature 98.0 F 98.0 F Pulse Rate 93 H 101 H 99 H Respiratory Rate 16 20 Blood Pressure 161/74 H 157/72 H Pulse Oximetry 97 97 02/24/18 23:33 02/25/18 00:00 02/25/18 03:30 Temperature 97.4 F L 97.8 F Pulse Rate 92 H 99 H 93 H Respiratory Rate 20 19 Blood Pressure 121/58 L 154/74 H Pulse Oximetry 94 L 94 L 02/25/18 04:00 02/25/18 08:00 Temperature Pulse Rate 96 H 95 H Respiratory Rate 18 Blood Pressure 159/81 H Pulse Oximetry 95 Intake & Output 02/24/18 02/25/18 02/25/18 18:59 06:59 18:59 Intake Total 1000 / 1000 Balance 1000 / 1000 Weight 99.337 kg Intake: IV 1000 / 1000 NS Inj 1,000 ML @ 50 mls/hr IV. 1000 / 1000 CONT .Q20H [facility] Rx#:[id number] - Constitutional no acute distress - Routine Respiratory Exam Present: CTA bilaterally - Routine Abdominal Exam Present: soft, normoactive bowel sounds. Absent: tenderness - Routine Neurological Exam Present: alert, oriented X3 Results - Labs CBC & Chem 7: 02/25/18 11:48 02/25/18 11:48 Laboratory Results - last 24 hr 02/25/18 02/25/18 11:48 11:48 WBC 7.5 RBC 2.86 L Hgb 9.8 L Hct 28.6 L MCV 100.1 H MCH 34.4 H MCHC 34.3 RDW 16.4 Plt Count 243 MPV 7.1 Neut % (Auto) 76.7 H Lymph % (Auto) 12.8 Mckean % (Auto) 8.9 H Eos % (Auto) 1.2 Baso % (Auto) 0.4 Neut # (Auto) 5.8 Lymph # (Auto) 1.0 Mckean # (Auto) 0.7 Eos # (Auto) 0.1 Baso # (Auto) 0.0 WBC Differential . Differential Comment Auto diff final Sodium 143 Potassium 4.2 Chloride 109 H Carbon Dioxide 27.2 Anion Gap 7 BUN 40 H Creatinine 2.05 H Estimated GFR 31 L Random Glucose 110 H Calcium 9.2 Iron 37 L TIBC 421 % Saturation 8.8 L Assessment and Plan - Attending Attestation IMPRESSION: 1. Hematochezia -- better at present 2. Anemia. -stable 3. History of cardiac transplant. 4. history renal sufficiency RECOMMENDATIONS: 1. EGD and colonoscopy when the patient agrees. He is higher than average risk. Awaiting okay from his sanitor 2. We did talk with indications, risks, complications, benefits and limitations including risks of bleeding, perforation, infection, arrhythmias, small possibility of . He understands he is higher than average risk. We talked about the risk of missed lesions and the patient understands that having a colonoscopy does not rule out colon cancer features as not all cancers start from polyps, some start from flat lesions. 3. Transfuse as needed. 4. Further recommendations depending on how he does
[2018-02-25] MEDS: Pantoprazole Inj 40 MG Vial IV.PUSH SCH (16:50)
[2018-02-26] MEDS: Pantoprazole Inj 40 MG Vial IV.PUSH SCH (01:03)
[2018-02-26 03:26] VITALS: RESP 18
[2018-02-26] MEDS: amLODIPine 10 MG Tablet PO SCH ×2 (08:55→12:45)
[2018-02-26] MEDS: Tacrolimus 0.5 MG Capsule PO SCH (08:55)
[2018-02-26] MEDS: azaTHIOprine 50 MG Tablet PO SCH (08:56)
[2018-02-26] MEDS: predniSONE 5 MG Tablet PO SCH (08:56)
[2018-02-26] MEDS: Acyclovir 200 MG Capsule PO SCH (08:56)
[2018-02-26] MEDS: hydrALAZINE 50 MG Tablet PO SCH (08:57)
[2018-02-26 11:27] LABS: Hematocrit 26.1 % (39.0-51.0)
[2018-02-26 11:39] LABS: Calcium 8.8 mg/dL (8.5-10.1); Carbon Dioxide 20.9 meq/L (21.0-32.0); Magnesium 2.3 mg/dL (1.5-2.5); Potassium 3.8 meq/L (3.5-5.1)
[2018-02-26 12:17] VITALS: BP 137/84; PULSE 90; TEMP 98.1; O2SAT 95
--- NOTE | 2018-02-26 16:11 | P.AMA ---
AMA Note - Diagnosis (1) Hematochezia (2) Anemia (3) Acute on chronic kidney failure (4) HTN (hypertension) (5) Hyperlipidemia AMA Statement: Patient Babatunde Lozano has decided to leave the hospital against medical advice. This patient has the capacity to refuse care and understands the risks of leaving, including permanent disability and/or , and has had an opportunity to ask questions about his/her condition. The patient has been informed that he/she may return for care at any time, and follow up has been arranged/advised. Discharge Disposition: Against Medical Advice Patient Condition on Discharge: Stable
--- NOTE | 2018-02-26 16:12 | P.DS ---
Date of admission: 02/24/18 13:07 Primary care physician: Guanakito Calderón MD Brief History from admission: This is a 77 year male pt. with significant PMHx heart transplant 23 years ago, HTN, HLP, hx of [place], CKD, CHF, aortic stenosis. Patient presented to the emergency room with complaint of rectal bleeding. Patient endorses that approximately 3 weeks ago he started to notice blood (red/maroon) in the toilet independent of stool. No abdominal pain, no nausea, no vomiting, no hematemesis. He went to see his primary care physician who put him on Benefiber and suppositories. Indicates he had no improvement and therefore he was referred to Dr. Hernandez. He went to see Dr. Cuellar today who did a sigmoidoscopy and was referred to the emergency room for further evaluation with consultation to Dr. John. Patient endorses history of occasional constipation, however this is resolved with stool softeners. Had a colonoscopy approximately 3-4 years ago which was negative. DS: Diagnosis - Discharge Diagnosis (1) Hematochezia Status: Acute (2) Anemia Status: Acute (3) Acute on chronic kidney failure Status: Acute (4) HTN (hypertension) Status: Chronic (5) Hyperlipidemia Status: Chronic DS: Summary Hospital Course: This patient is a 77-year-old male with a history of heart transplant approximately 23 years ago, hypertension, dyslipidemia, CHF, chronic kidney disease, and aortic stenosis. Patient presented to our emergency department with complaints of rectal bleeding that has been ongoing over the past few weeks. Rectal examination in the emergency department showed dark red stool according to the patient he had a colonoscopy about 3-4 years ago which showed normal findings. He underwent sigmoidoscopy yesterday by Dr. Klein which showed brick colored stools. 1. Anemia possibly secondary to GI bleed and chronic kidney disease. 2. Hematochezia 3. Acute on chronic kidney disease likely secondary to #1 4. Hypertension/dyslipidemia 5. History of heart transplant 23 years ago The patient was being treated for a GI bleed. Hemoglobin was around 9 the patient has a history of a heart transplant and has been on antirejection medications for over 20 years. The patient presented with bloody stools. GI was consulted to evaluate the patient and recommended EGD/colonoscopy. The patient's education assistant is Dr. Mann in [facility]. I made multiple attempts to contact Dr. Mann and spoke to his nurse practitioner who also made attempts to contact him however he was off this weekend. The patient did not want to move forward with EGD or colonoscopy if he did not speak with his education assistant. He became frustrated and decided to leave AGAINST MEDICAL ADVICE today. I discussed the risks of leaving AGAINST MEDICAL ADVICE with the patient however he was adamant about leaving. He understands that he may continue to bleed and that there is a possibility of a fatal outcome if he leaves AGAINST MEDICAL ADVICE. The patient no longer wanted to speak to me and change his close and began to leave the hospital. - Time Spent with Patient Total time spent providing and/or coordinating discharge services: Less than 30 minutes - Quality: VTE Deep Vein Thrombosis/Pulmonary Embolism Present on Admission: No Exam Vital signs: Vital Signs 02/25/18 19:42 02/25/18 20:00 02/25/18 23:30 Temperature 98.4 F 98.4 F Pulse Rate 95 H 94 H 93 H Respiratory Rate 18 20 Blood Pressure 139/76 135/69 Pulse Oximetry 95 93 L 02/26/18 03:25 02/26/18 08:00 02/26/18 12:00 Temperature 98.4 F 98.1 F Pulse Rate 91 H 88 90 Respiratory Rate 18 18 18 Blood Pressure 139/74 127/59 L 137/84 Pulse Oximetry 93 L 93 L 95 Intake & Output 02/25/18 02/26/18 02/26/18 18:59 06:59 18:59 Intake Total 1000 / 1000 Balance 1000 / 1000 Intake: IV 1000 / 1000 NS Inj 1,000 ML @ 50 mls/hr IV. 1000 / 1000 CONT .Q20H [facility] Rx#:[id number] Narrative: General patient is frustrated today. He says he is angry that his education assistant has not called him back. HEENT extraocular movements are intact, clear oropharyngeal mucosa, no JVD Cardiovascular S1-S2 audible Respiratory clear to auscultation bilaterally Abdomen soft, nontender, nondistended, normal bowel sounds Extremities no edema 2+ distal pulses in bilateral upper and lower extremities Neuro no neurological deficits Results Procedures completed during hospitalization: None Labs on day of discharge: Labs from last 24 hours 02/26/18 02/26/18 10:30 10:30 Hgb 9.0 L Hct 26.1 L Sodium 142 Potassium 3.8 Chloride 111 H Carbon Dioxide 20.9 L Anion Gap 10 BUN 36 H Creatinine 2.24 H Estimated GFR 28 L Random Glucose 115 H Calcium 8.8 Magnesium 2.3 Discharge Plan - Discharge Disposition Patient Disposition: Against Medical Advice - Discharge Condition Condition: Stable - Discharge Order Discharge Orders: AMA Discharge (Routine); Ordered 02/26/18 Ordered By: Becky Kevin - Physicians Team Primary Care Provider: Guanakito Calderón Attending Provider: Ailin Rodney Other Providers: Tyler Sullivan MD
== END 2018-02-26 14:12 | disposition left against medical advice (07) ==
LOC: NEDA 09:54 → NEPC 09:54 → NEPGCP 16:08
PROVIDERS: ADMIT Hospitalist; ATTEND Hospitalist